=== PATIENT | male | born 2000 | race Hispanic/Latino ===

== ENCOUNTER 2024-09-02 06:09 | Emergency (ER) | payer SELFPAY ==
[2024-09-02] MEDS ORDERED: ONDANSETRON 4 MG/2 ML VIAL ONE (06:42)
[2024-09-02] MEDS ORDERED: KETOROLAC 30 MG/ML INJ ONE (06:42)
[2024-09-02] MEDS ORDERED: NA CHLORIDE 0.9% 1,000 ML ONE (06:43)
[2024-09-02 06:49] LABS: Absolute Eosinophils 0.3 K/uL (0-0.5); Absolute Lymphocytes (CBC) 1.1 K/uL (0.7-4.9); Absolute Monocytes 0.8 K/uL (0.1-1.3); Absolute Neutrophil 4.5 K/uL (1.8-8.0); Basophils % 0.3 % (0-1.3); Eosinophils % 3.8 % (0-4.4); Hematocrit 48.8 % (39.6-49.0); Hemoglobin 16.5 g/dL (13.6-17.9); Lymphocytes % 16.1 % (15.3-44.8); MCH 29.4 pg (27.0-35.0); MCHC 33.8 g/dL (32.0-36.0); MPV 9.6 fL (7.6-11.3); Monocytes % 11.9 % (3.3-12.3); Neutrophils % 67.9 % (41.7-73.7); Nucleated Red Blood Cells % 0.1 % (0-0); Platelets 125 thou/uL (152-406); RBC Red Blood Cell Count 5.61 M/uL (4.33-5.43); Red Cell Distribution Width 14.6 % (12.1-15.2)
[2024-09-02 07:03] LABS: Albumin 3.9 g/dL (3.4-5.0); Bilirubin Total 0.7 mg/dL (0.2-1.0); Protein, Total 7.9 g/dL (6.4-8.2)
[2024-09-02 08:00] LABS: Specific Gravity 1.015 (1.005-1.030); Sqamous Epithelial None Seen /HPF (None Seen); Urine Bacteria None Seen /HPF (<20); Urine Bilirubin NEGATIVE (Negative); Urine Blood Negative (Negative); Urine Clarity Clear (Clear); Urine Color Light-Yellow (Yellow); Urine Culture Reflex Order NOT NEEDED; Urine Glucose NEGATIVE (Negative); Urine Ketones NEGATIVE (Negative); Urine Microscopic Reflex YN ORDER UMIC; Urine Mucus Slight /HPF (None Seen); Urine Nitrite NEGATIVE (Negative); Urine Protein NEGATIVE (Negative); Urine RBC <5 /HPF (None Seen); Urine Urobilinogen Normal (Normal); Urine WBC <5 /HPF (<5)
--- NOTE | 2024-09-02 08:09 | RAD REPORT ---
EXAMINATION: CT ABDOMEN AND PELVIS WITH CONTRAST CLINICAL INDICATION: epigastric pain mild lipase elevation;Abd pain TECHNIQUE: CT abdomen and pelvis was performed, after the administration of 100 cc Isovue-300.. Sagit beau and coronal reconstructions were obtained. One or more of the following dose reduction techniques were used: Automated exposure control, adjustment of the mA and kV according to patient si ze, and iterative reconstruction. Unless otherwise specified, incidental findings do not require dedicated imaging follow-up. [id number]. Oral contrast was not given which limits evaluation of bowel and appendix. COMPARISON: .None FINDINGS: Liver, spleen, pancreas, adrenals and kidneys appear unremarkable. No peripancreatic stranding. No ps eudocyst. No evidence of diverticulitis. Fluid throughout large and small bowel. Proximal and mid appendix are normal caliber. Several small appendicoliths within the distal appendix are present. The distal appendix is mildly enlarged. No stranding visualized within the adjacent fat. : IMPRESSION: Several appendicoliths. The distal appendix is mildly dilated. No stranding within the adjacent fat. This is equivocal for distal tip appendicitis Fluid within nondilated large and small bowel is seen in an enteritis
--- NOTE | 2024-09-02 08:18 | EDPHYS ---
Physician Documentation [facility] Name: Daniele Dover Age: 23 yrs Sex: Male : 2000 Arrival Date: 09/02/2024 Time: 06:09 Bed 15 Private MD: ED Physician Macario Medrano HPI: 09/02 07:35 This 23 yrs old Male presents to ER via Ambulatory with complaints of Abdominal Pain, sp3 Fever, Nausea. 07:35 33-year-old male with no past medical history, no past surgical history on no sp3 medications now presents to the ED with chief complaint epigastric abdominal pain, fever subjective, nausea and vomiting. He also states he has diarrhea. Patient just was out of town for 5 days for [place] in [facility]. Positive sick contacts in the family noted. He denies any URI symptoms, chest pain, shortness of breath, melena, bleeding, syncope, near syncope, or any other signs or symptoms on ROS at this time.. Historical: - Allergies: 06:21 No Known Allergies; cp4 - Immunization history:: Adult Immunizations up to date. - Infectious Disease History:: Denies. - Social history:: Smoking status: Patient denies any tobacco usage or history of. ROS: 07:35 Constitutional: Negative for fever, chills, and weight loss, Eyes: Negative for injury, sp3 pain, redness, and discharge, Neck: Negative for injury, pain, and swelling, Cardiovascular: Negative for chest pain, palpitations, and edema, Abdomen/GI: Negative for abdominal pain, nausea, vomiting, diarrhea, and constipation, Back: Negative for injury and pain, MS/Extremity: Negative for injury and deformity, Skin: Negative for injury, rash, and discoloration, Neuro: Negative for headache, weakness, numbness, tingling, and seizure, Psych: Negative for depression, anxiety, suicide ideation, homicidal ideation, and hallucinations, Allergy/Immunology: Negative for hives, rash, and allergies, Endocrine: Negative for neck swelling, polydipsia, polyuria, polyphagia, and marked weight changes, Hematologic/Lymphatic: Negative for swollen nodes, abnormal bleeding, and unusual bruising, 07:35 All other systems are negative, Exam: 07:36 Constitutional: This is a well developed, well nourished patient who is awake, alert, sp3 and in no acute distress. Head/Face: Normocephalic, atraumatic. Eyes: Pupils equal round and reactive to light, extra-ocular motions intact. Lids and lashes normal. Conjunctiva and sclera are non-icteric and not injected. Cornea within normal limits. Periorbital areas with no swelling, redness, or edema. ENT: Nares patent. No nasal discharge, no septal abnormalities noted. External auditory canals are clear. Oropharynx with no redness, swelling, or masses, exudates, or evidence of obstruction, uvula midline. Mucous membranes moist. Neck: Trachea midline, no thyromegaly or masses palpated, and no cervical lymphadenopathy. Supple, full range of motion without nuchal rigidity, or vertebral point tenderness. No Meningismus. Chest/axilla: Normal chest wall appearance and motion. Nontender with no deformity. No lesions are appreciated. Cardiovascular: Regular rate and rhythm with a normal S1 and S2. No gallops, murmurs, or rubs. Normal PMI, no JVD. No pulse deficits. Respiratory: Lungs have equal breath sounds bilaterally, clear to auscultation and percussion. No rales, rhonchi or wheezes noted. No increased work of breathing, no retractions or nasal flaring. Back: No spinal tenderness. No costovertebral tenderness. Full range of motion. Skin: Warm, dry with normal turgor. Normal color with no rashes, no lesions, and no evidence of cellulitis. MS/ Extremity: Pulses equal, no cyanosis. Neurovascular intact. Full, normal range of motion. Neuro: Awake and alert, GCS 15, oriented to person, place, time, and situation. Cranial nerves II-XII grossly intact. Motor strength 5/5 in all extremities. Sensory grossly intact. Cerebellar exam normal. Normal gait. Psych: Awake, alert, with orientation to person, place and time. Behavior, mood, and affect are within normal limits. 07:36 Abdomen/GI: Mild pain epigastric area. No peritoneal signs, rebound or guarding. Vital signs are normal. , Vital Signs: 06:19 BP 135 / 89; Pulse 72; Resp 16; Temp 97.5; Pulse Ox 100% ; Weight 68.04 kg; Height 5 cp4 ft. 10 in. ; Pain 8/10; 07:30 BP 118 / 63; Pulse 63; Resp 16; Pulse Ox 100% on R/A; db 08:15 BP 109 / 68; Pulse 60; Resp 16; Pulse Ox 100% on R/A; db 06:19 Body Mass Index 21.52 (68.04 kg, 177.8 cm) cp4 06:19 Pain Scale: Adult cp4 MDM: 07:06 Medical Screening Exam initiated sp3 07:37 Data reviewed: vital signs, nurses notes, lab test result(s), radiologic studies. ED sp3 course: Differential diagnosis includes gastritis, pancreatitis, biliary pathology, colitis, viral illness, dehydration, among others. I am not highly suspicious for peritonitis, appendicitis, diverticulitis, bowel obstruction, ileus, or any other critical process including sepsis and shock. Workup will include general labs with further imaging as indicated. Patient received ketorolac by nighttime physician. Final disposition pending workup and patient course.. 08:15 ED course: No pancreatic abnormality on CT. Appendicoliths noted however clinically sp3 patient does not have appendicitis with absolutely zero pain on deep palpation to the right lower quadrant and no back pain or right CVA tenderness. Enteritis noted. Given duration of symptoms, we will place patient on Cipro and Flagyl with PCP follow-up as needed. Patient does not consume alcohol and does not risk for alcohol related pancreatitis.. 09/02 06:24 Order name: CBC with Diff; Complete Time: 08:47 sp4 09/02 06:24 Order name: CMP; Complete Time: 07:18 sp4 09/02 06:24 Order name: Lipase; Complete Time: 07:18 sp4 09/02 06:24 Order name: Urinalysis w/ reflexes; Complete Time: 08:14 sp4 09/02 06:25 Order name: Influenza Screen (a \T\ B); Complete Time: 08:14 sp4 09/02 07:18 Order name: SARS RAPID; Complete Time: 08:26 sp3 09/02 08:34 Order name: Manual Differential; Complete Time: 08:47 EDMS 09/02 07:19 Order name: CT Abd/Pelvis - IV Contrast Only; Complete Time: 08:14 sp3 09/02 06:25 Order name: IV Saline Lock; Complete Time: 06:37 sp4 09/02 06:25 Order name: Labs collected and sent; Complete Time: 06:37 sp4 Administered Medications: 06:46 Drug: Ondansetron IVP 4 mg IVP once; over 2 minutes Route: IVP; Site: right antecubital;cp4 08:50 Follow up: Response: No adverse reaction db 06:46 Drug: NS 0.9% IV 1000 ml IV at 1 bolus Per protocol; to be given as a bolus over 60 cp4 minutes Route: IV; Rate: 1 bolus; Site: right antecubital; 08:50 Follow up: Response: No adverse reaction; IV Status: Completed infusion; IV Intake: db 1000ml 06:46 Drug: Ketorolac IVP 30 mg IVP once Route: IVP; Site: right antecubital; cp4 08:49 Follow up: Response: No adverse reaction db Disposition Summary: 09/02/24 08:16 Discharge Ordered Notes: Location: Home sp3 Condition: Stable sp3 Diagnosis - Gastroenteritis, abdominal pain sp3 Followup: sp3 - With: Macario Medrano MD - When: Upon discharge from the Emergency Department - Reason: Continuance of care Discharge Instructions: - Discharge Summary Sheet sp3 - Diarrhea, Adult sp3 Forms: - Medication Reconciliation Form sp3 - Antibiotic Education sp3 - Prescription Opioid Use sp3 - Patient Portal Instructions sp3 - Leadership Thank You Letter sp3 - Work release form db Prescriptions: - Cipro 500 mg Oral Tablet - take 1 tablet ORAL route every 12 hours for 10 days; 20 tablet; Refills: 0, sp3 Product Selection Permitted - Flagyl 500 mg Oral Tablet - take 1 tablet ORAL route every 8 hours for 10 days; 30 tablet; Refills: 0, sp3 Product Selection Permitted Signatures: Dispatcher [employer] EDMacario Leal MD MD sp3 Ko Caputo MD MD sp4 Diana Kc Danielle RN db Corrections: (The following items were deleted from the chart) 06:25 06:25 CBC+H.LAB.BRZ ordered. EDMS EDMS 06:25 06:25 COMPREHENSIVE METABOLIC PANEL+C.LAB.BRZ ordered. EDMS EDMS 06:25 06:25 LIPASE+C.LAB.BRZ ordered. EDMS EDMS 06:25 06:25 Urinalysis+U.LAB.BRZ ordered. EDMS EDMS 06:25 06:25 Influenza Screen (A \T\ B)+BA.LAB.BRZ ordered. EDMS EDMS 07:18 07:18 SARS-COV-2 Antigen Rapid+I.LAB.BRZ ordered. EDMS EDMS 07:37 07:36 Abdomen/GI: Mild pain epigastric area. No peritoneal signs, rebound or guarding. sp3 Vital signs are normal. Differential diagnosis includes gastritis, pancreatitis, biliary pathology, colitis, viral illness, dehydration, among others. I am not highly suspicious for peritonitis, appendicitis, diverticulitis, bowel obstruction, ileus, or any other critical process including sepsis and shock. Workup will include general labs with further imaging as indicated. Patient received ketorolac by nighttime physician. Final disposition pending workup and patient course., sp3
--- NOTE | 2024-09-02 08:18 | ER ---
Nurse's Notes [facility] Name: Daniele Dover Age: 23 yrs Sex: Male : 2000 Arrival Date: 09/02/2024 Time: 06:09 Bed 15 Private MD: Diagnosis: Gastroenteritis, abdominal pain Presentation: 09/02 06:19 Chief complaint: Patient states: abdominal pain with nausea, vomiting and diarrhea that cp4 started yesterday. Coronavirus screen: Client denies travel out of the [place] in the last 14 days. At this time, the client does not indicate any symptoms associated with coronavirus-19. Ebola Screen: Patient negative for fever greater than or equal to 101.5 degrees Fahrenheit, and additional compatible Ebola Virus Disease symptoms Patient denies exposure to infectious person. Patient denies travel to an Ebola-affected area in the 21 days before illness onset. No symptoms or risks identified at this time. Initial Sepsis Screen: Does the patient meet any 2 criteria? No. Patient's initial sepsis screen is negative. Does the patient have a suspected source of infection? No. Patient's initial sepsis screen is negative. Risk Assessment: Do you want to hurt yourself or someone else? Patient reports no desire to harm self or others. Onset of symptoms was September 01, 2024. 06:19 Method Of Arrival: Ambulatory cp4 06:19 Acuity: BRISEYDA 3 cp4 Triage Assessment: 06:21 General: Appears in no apparent distress. uncomfortable, Behavior is calm, cooperative, cp4 appropriate for age. Pain: Complains of pain in abdomen Pain does not radiate. Pain currently is 8 out of 10 on a pain scale. EENT: No signs and/or symptoms were reported regarding the EENT system. Neuro: Level of Consciousness is awake, alert, obeys commands, Oriented to person, place, time, situation. Cardiovascular: Patient's skin is warm and dry. Cardiovascular:. Respiratory: Airway is patent Respiratory effort is even, unlabored. GI: Abdomen is flat, non-distended, Bowel sounds present X 4 quads. Abd is soft and non tender X 4 quads. Reports diarrhea, nausea, vomiting, since yesterday. : No signs and/or symptoms were reported regarding the genitourinary system. Derm: No signs and/or symptoms reported regarding the dermatologic system. Musculoskeletal: No signs and/or symptoms reported regarding the musculoskeletal system. Historical: - Allergies: 06:21 No Known Allergies; cp4 - Immunization history:: Adult Immunizations up to date. - Infectious Disease History:: Denies. - Social history:: Smoking status: Patient denies any tobacco usage or history of. Screenin:22 [facility] ED Fall Risk Assessment (Adult) History of falling in the last 3 months, cp4 including since admission No falls in past 3 months (0 pts) Confusion or Disorientation No (0 pts) Intoxicated or Sedated No (0 pts) Impaired Gait No (0 pts) Mobility Assist Device Used No (0 pt) Altered Elimination No (0 pt) Score/Fall Risk Level 0 - 2 = Low Risk Oriented to surroundings, Maintained a safe environment, Assessed \T\ reinforced patient's understanding of fall precautions, Hourly rounding (assess needs \T\ fall precautionary measures) done. Abuse screen: Denies threats or abuse. Nutritional screening: No deficits noted. Tuberculosis screening: No symptoms or risk factors identified. Assessment: 06:22 Reassessment: No changes from previously documented assessment. cp4 08:55 Reassessment: Patient appears in no apparent distress at this time. Patient and/or db family updated on plan of care and expected duration. Pain level reassessed. Patient is alert, oriented x 3, equal unlabored respirations, skin warm/dry/pink. General: Appears in no apparent distress. comfortable, Behavior is calm, cooperative. Neuro: Level of Consciousness is awake, alert, obeys commands, Oriented to person, place, time, situation. Vital Signs: 06:19 BP 135 / 89; Pulse 72; Resp 16; Temp 97.5; Pulse Ox 100% ; Weight 68.04 kg; Height 5 cp4 ft. 10 in. ; Pain 8/10; 07:30 BP 118 / 63; Pulse 63; Resp 16; Pulse Ox 100% on R/A; db 08:15 BP 109 / 68; Pulse 60; Resp 16; Pulse Ox 100% on R/A; db 06:19 Body Mass Index 21.52 (68.04 kg, 177.8 cm) cp4 06:19 Pain Scale: Adult cp4 ED Course: 06:14 Patient arrived in ED. [email or web address] 06:15 Diana Kc is Primary Nurse. cp4 06:20 Initial lab(s) drawn, by me, sent to lab. Flu and/or RSV swab sent to lab. Inserted ty saline lock: 20 gauge in right antecubital area, using aseptic technique. Blood collected. Flushed with 10 mL NS. 06:21 Triage completed. cp4 06:21 Arm band placed on right wrist. Patient placed in waiting room. cp4 06:22 Bed in low position. Call light in reach. Side rails up X2. Provided Education on: cp4 abdominal pain. 06:22 No provider procedures requiring assistance completed. cp4 07:04 Macario Medrano MD is Attending Physician. sp3 07:27 Urine collected: clean catch specimen, COVID swab sent to lab. db 07:[address] via wheelchair. db 07:37 CT Abd/Pelvis - IV Contrast Only In Process Unspecified. EDMS 08:16 Macario Medrano MD is Referral Physician. sp3 08:55 IV discontinued, intact, bleeding controlled, No redness/swelling at site. db Administered Medications: 06:46 Drug: Ondansetron IVP 4 mg IVP once; over 2 minutes Route: IVP; Site: right antecubital;cp4 08:50 Follow up: Response: No adverse reaction db 06:46 Drug: NS 0.9% IV 1000 ml IV at 1 bolus Per protocol; to be given as a bolus over 60 cp4 minutes Route: IV; Rate: 1 bolus; Site: right antecubital; 08:50 Follow up: Response: No adverse reaction; IV Status: Completed infusion; IV Intake: db 1000ml 06:46 Drug: Ketorolac IVP 30 mg IVP once Route: IVP; Site: right antecubital; cp4 08:49 Follow up: Response: No adverse reaction db Medication: 06:22 VIS not applicable for this client. cp4 Intake: 08:50 IV: 1000ml; Total: 1000ml. db Outcome: 08:16 Discharge ordered by . sp3 08:53 Discharged to home ambulatory, with family, db 08:53 Condition: stable 08:53 Discharge instructions given to patient, family, Instructed on discharge instructions, follow up and referral plans. Prescriptions given X 2, 08:56 Patient left the ED. db Signatures: Dispatcher [employer] EDID Macario Medrano MD MD sp3 Brielle [id number] Iram Hernandez, RN RN db Diana Kc cp4 Orion Kohler
[2024-09-02 08:25] LABS: SARS-CoV-2 Antigen CONTROL BLUE LINE VIS/BG OK; SARS-CoV-2 Antigen Rapid Res Negative (Negative)
[2024-09-02 08:34] LABS: Band Neutrophils 1 % (0-1); Blood Morphology Comment NOT SEEN (NOT SEEN); Differential Total Cells Count 100; Lymphocytes 17 % (15-42); Monocytes 9 % (0-10); Platelet Estimate DECR; Segmented Neutrophils 72 % (40-80)
[2024-09-02 14:43] VITALS: TEMP 97.5; O2SAT 100
[2024-09-02 14:54] VITALS: BP 109/68
== END 2024-09-02 08:56 | disposition home or self-care (01) ==
LOC: ER 06:09
DX: K52.9 Noninfective gastroenteritis and colitis, unspecified (principal); Z11.52 Encounter for screening for COVID-19
CPT/HCPCS: 36415; 74177; 80053; 81001; 83690; 85025; 87804; 87811; 96361; 96374; 96375; 99285; J2405; J7030; Q9967